=== PATIENT | female | born 1960 | race Caucasian/White ===

== ENCOUNTER → 2020-02-29 | Outpatient (CLI) | payer OTHER | LOC: ZCOL.LAB 16:03 | DX: Z20.828 Contact with and (suspected) exposure to other viral communicable diseases (principal) ==

== ENCOUNTER → 2021-06-22 | Outpatient (CLI) | payer BC | LOC: MC.RAD 06-17 14:45 | DX: Z12.31 Encounter for screening mammogram for malignant neoplasm of breast (principal); N64.89 Other specified disorders of breast ==

== ENCOUNTER → 2021-06-25 | Outpatient (CLI) | payer BC | LOC: MC.RAD 07:45 | DX: N60.42 Mammary duct ectasia of left breast (principal) ==

== ENCOUNTER 2021-11-11 07:25 | Day surgery (SDC) | payer BC ==
[~2021-11-11] VITALS: Ht 160 cm; Wt 80.5 kg
[2021-11-11] MEDS ORDERED: TESSALON PERLE200 MG PO (07:53)
[2021-11-11] MEDS ORDERED: TYLENOL 500MG500 MG PO (07:53)
[2021-11-11] MEDS ORDERED: THE MEDICINE S200 M2 PO (07:54)
[2021-11-11] MEDS ORDERED: MULTI VITAMINS1 TAB PO (07:54)
[2021-11-11] MEDS ORDERED: PROBIOTIC BLEN1 EACH PO (07:55)
[2021-11-11] MEDS ORDERED: MASON NATURAL2000 IU PO (07:55)
[2021-11-11 07:56] VITALS: BP 131/94; PULSE 99; TEMP 98.4
[2021-11-11 09:25] VITALS: BP 116/73; PULSE 73; TEMP 98.3
[2021-11-11 09:30] VITALS: BP 116/73; PULSE 78
[2021-11-11 09:45] VITALS: BP 116/77; PULSE 76
[2021-11-11 10:00] VITALS: BP 115/71; PULSE 77
--- NOTE | 2021-11-11 10:25 | NUR ---
0925 Pt returns from endo procedure via cart and RN assist to [facility]. Pt ambulates from cart to recliner with RN assist. Monitors on and alarms set. Call light within reach. Report received from FRANCESCO Aguilar. Pt drowsy but answers all questions appropriately. Pt's present in room. Pt requests water and muffin. Pt denies nausea and has some "cramping" pain in her abdomen. Warm blanket provided for her by request. 0935 Pt taking food and drink well. No complications noted. "Cramping" pain improving little by little. 1010 Discharge instructions given to pt and pt's . All questions answered to their satisfaction. Handed to pt are a thank you card and discharge information. 1025 Pt transferred out of the hospital via wheelchair and this RN assist, to private vehicle driven by pt's .
== END 2021-11-11 10:25 | disposition home or self-care (01) ==
LOC: SDCO 07:25
DX: Z12.11 Encounter for screening for malignant neoplasm of colon (principal); I10 Essential (primary) hypertension; Z92.29 Personal history of other drug therapy; N95.1 Menopausal and female climacteric states; M25.562 Pain in left knee; Z81.8 Family history of other mental and behavioral disorders
CPT/HCPCS: J2704; J7030

== ENCOUNTER → 2022-09-20 | Outpatient (CLI) | payer BC ==
[~2022-09-20] MED LIST: MASON NATURAL2000 IU PO; MULTI VITAMINS1 TAB PO; PROBIOTIC BLEN1 EACH PO; TESSALON PERLE200 MG PO; THE MEDICINE S200 M2 PO; TYLENOL 500MG500 MG PO
== END ==
LOC: MC.RAD 15:27
DX: Z12.31 Encounter for screening mammogram for malignant neoplasm of breast (principal); N64.89 Other specified disorders of breast

== ENCOUNTER → 2022-09-23 | Outpatient (CLI) | payer BC | LOC: MC.RAD 07:52 | DX: R92.8 Other abnormal and inconclusive findings on diagnostic imaging of breast (principal) ==